=== PATIENT | female | born 2005 | race Caucasian/White ===

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

== ENCOUNTER 2025-06-01 17:28 | Outpatient (REF) | payer SELFPAY ==
--- OUTSIDE RECORDS SUMMARY | 2025-06-01 13:15 | XMS_ITS | Encounter Summary ---
Author Organization [employer] Address [address] [facility] 7 [place] [address] Care Team Providers Care Service Line Bus Cleaner Name Role Phone Timmy Snow MD Primary Care Provide r Reason for Visit * Reason Comments nexplanon removal Encounter Details Date Type Department Care Team (Latest Contact Info) Description 06/01/2025 1:15 PM EDT Procedure [facility] [address] [place] [address] Cady Joseph CNM [address] [place] [address] Nexplanon removal (Primary Dx); Screening examination for venereal disease; Low back pain, non-specific Social History Tobacco Use Types Packs/Day Years Used Date Smoking Tobacco: Never Smokeless Tobacco: Never Alcohol Use Standard Drinks/Week Comments Never 0 (1 standard drink = 0.6 oz pur e alcohol) Depression Answer Date Recorded Patient Health Questionnaire-9 Score 12 06/01/2025 Patient Health Questionnaire-9 Score 12 06/01/2025 Last PHQ-9: Questionnaire Data Not on file 1 Housing Stability Answer Date Recorded What is your housing situation today? Not on abebe e 06/01/[address] you li ve. Do you have problems with any of the following? None of the above 06/01/2025 Food Insecurity Answer Date Recorded Within the [...] Answer Date Recorded Patient Health Questionnaire-2 Score 4 06/01/2025 Comments No Intention Date Recorded No desire to become (finding) 1 Sex and Gender Information Value Date Recorded Sex Assigned at Female 02/21/2023 2:13 PM EDT Legal Sex Female 11:33 AM EST Gender Identity Female 02/21/2023 2:13 PM EDT Sexual Orientation Don't know 02/21/2023 2: 13 PM EDT documented as of this encounter Last Filed Vital Signs Vital Sign Reading Time Taken Comments Blood Pressure 122/70 06/01/2025 1:35 PM EDT Pulse 80 06/01/2025 1:35 PM EDT Temperature 37.1 C (98.7 F) 06/01/2025 1:35 PM EDT Respiratory Rate 16 06/01/2025 1:35 PM EDT Oxygen Saturation - - Inhaled Oxygen Concentration - - Weight 71.6 kg (157 lb 12.8 oz) 06/01/2025 1:35 PM EDT Height - - Body Mass Index - - documented in this encounter Functional Status * Over the past 2 weeks, how often have you been bothered by any of the following problems? Question Answer Date of Assessment Author Patient Health Questionnaire -2 Score 4 06/01/2025 2:43 PM EDT Petr Galeas MA * Little interest or pleasure in doing things Answer Date of Assessment Author More than half the days 06/01/2025 2:43 PM EDT Karie Blanc MA * Feeling down, depressed, or hopeless Answer Date of Assessment Author More than half the days 06/01/2025 2:43 PM EDT Karie Blanc MA * Trouble falling or staying asleep, or sleeping too much Answer Date of Assessment Author More than half the days 06/01/2025 2:43 PM EDT Karie Blanc MA * Feeling tired or having little energy Answer Date of Assessment Author More than half the days 06/01/2025 2:43 PM EDT Karie Blanc MA * Poor appetite or overeating Answer Date of Assessment Author More than half the days 06/01/2025 2:43 PM EDT Karie Blanc MA * Feeling bad about yourself - or that you are a failure or have let yourself or your family down Answer Date of Assessment Author Several days 06/01/2025 2:43 PM EDT Karie Galeas MA * Trouble concentrating on things, such as reading the newspaper or watching television Answer Date of Assessment Author Not at all 06/01/2025 2:43 PM EDT Karie Galeas MA * Moving or speaking so slowly that other people could have noticed? Or the opposite - being so fidgety or restless that you have been moving around a lot more than usual. Answer Date of Assessment Author Several days 06/01/2025 2:43 PM EDT Karie Galeas MA * Thoughts that you would be better off or hurting yourself in some way Answer Date of Assessment Author Not at all 06/01/2025 2:43 PM EDT Karie Galeas MA * Patient Health Questionnaire-9 Score Answer Date of Assessment Author 12 06/01/2025 2:43 PM EDT Karie Galeas MA * How difficult have these problems made it for you to do your work, take care of things at home, or get along with other people? Answer Date of Assessment Author Not difficult at all 06/01/2025 2:43 PM EDT Karie Geiger MA documented as of this encounter Progress Notes * Cady Joseph CNM - 06/01/2025 1:15 PM EDTAssociated Order(s): Insertion/Removal of Contraceptive Capsule Subjective Patient ID: Laine Kuhn is a 19 y.o. female who presents for Nexplanon removal Nexplanon inserted 03/2023. Would like removal today, just doesn't feel like herself. Amenorrheic with implant, but gets monthly cramping. Likes having regular period. Last sexually active 6 months ago. Agrees to urine based STI testing today. Not planning in the next year. Notes some low back pain. Denies urinary or vaginal symptoms. Review of Systems Genitourinary: Negative for dysuria, frequency, hematuria, pelvic pain, vaginal bleeding, vaginal discharge and vaginal pain. Musculoskeletal: Positive for back pain. Objective BP 122/70 (BP Location: Left arm, Patient Position: Sitting, BP Cuff Size: Adult) Pulse 80 Temp98.7 ??F (37.1 ??C) (Oral) Resp 16 Wt 157 lb 12.8 oz (71.6 kg) Physical Exam Constitutional: Appearance: Normal appearance. Abdominal: Tenderness: There is no right CVA tenderness or left CVA tenderness. Skin: Comments: Nexplanon palpable in left arm prior to removal Neurological: Mental Status: She is alert. Psychiatric: Mood and Affect: Mood normal. Behavior: Behavior normal. Assessment/Plan Diagnoses and all orders for this visit: Nexplanon removal - POCT Urinalysis Nexplanon removed intact, easily. See procedure note. Report redness, pain or swelling at removal site. Report irregular bleeding or missed menses. Let me know if no menses by end of June. Aware of condoms and EC. Let me know if interested in starting another method. Keep pressure bandage on x 24h, steristrips and bandaid x 3-5 days. Keep arm dry for 24 hours. Screening examination for venereal disease - Chlamydia/N. Gonorrhoeae, PCR, Urine - Trichomonas RNA (Urine/Vaginal) Urine Gonorrhea/Chlamydia/trichomonas sent. Will offer serum labs when I call with results. Low back pain, non-specific Neg CVAT today. Sounds more like this is cyclical with cramping. Increase fluids. Seek care if symptoms worsen/persist. Insertion/Removal of Contraceptive Capsule Date/Time: 06/01/2025 1:35 PM Performed by: Cady Joseph CNM Authorized by: Cady Joseph CNM Confirmed correct patient, procedure, site, and patient consented: Yes Participating Staff: Cady Joseph CNM Participating Staff: PHILLIP Pena Consent: Consent obtained: Verbal and written Consent given by: Patient Procedural risks and benefits discussed: Yes Patient questions answered: yes Patient agrees, verbalizes understanding, and wants to proceed: yes Instructions and paperwork completed: yes Lawai Protocol: Patient states understanding of procedure being performed: yes Site marked: yes Indication: Indication: presence of non-biodegradable drug delivery implant Pre-procedure: Pre-procedure timeout performed: yes Prepped with: povidone-iodine Local anesthetic: 2ml 2% lidocaine. The site was cleaned and prepped in a sterile fashion: yes Procedure: Procedure: Removal Small stab incision was made in arm: yes Left/right: Left Site was closed with steri-strips and pressure bandage applied: yes Comments: Implant removed intact, easily. documented in this encounter Plan of Treatment Upcoming Encounters Date Type Department Care Team (Late st Contact Info) Description 06/23/2025 2:00 PM EST Office Visit [facility] [address] [place], [place] [id number] Susan Stanton FNP [address] [place] [address] Scheduled Orders Name Type Priority Associated Diagnoses Orde r Schedule Chlamydia/N. Gonorrhoeae, PCR, Urine Lab Routine Screening examination for venereal disease Ordered: 06/01/2025 Trichomonas RNA (Urine/Vaginal) Lab Routine Screening examination for venereal disease Ordered: 06/01/2025 documented as of this encounter Procedures Procedure Name Priority Date/Time Associated Diagnosis Comments POCT URINALYSIS DIPSTICK Routine 06/01/2025 1:44 PM EDT Nexplanon removal [place] REMOVAL NON-BIODEGRADABLE DRUG DELIVERY IMPLANT Routine 06/01/2025 1:35 PM EDT Nexplanon removal documented in this encounter Results * POCT Urinalysis (06/01/2025 1:44 PM EDT) Color, UA Yellow Clarity, UA Clear Glucose, UA Negative Bilirubin, UA Negative Ketones, UA Negative Spec Grav, UA 1.030 Blood, UA Negative Negative, None Detected pH, UA 6.0 Protein, UA Negative Urobilinogen, UA 1.0 Leukocytes, UA Negative Negative, Rare, Trace Nitrite, UA Negative Negative, None Detected Appearance, UA clear Urine (Urine, Random) 06/01/2025 1:44 PM EDT Cady Joseph CNM POINT OF CARE TEST ENTER/ EDIT ORDERABLES Final Result * [place] REMOVAL NON-BIODEGRADABLE DRUG DELIVERY IMPLANT (06/01/2025 1:35 PM EDT) Narrative Cady Joseph CNM - 06/01/2025 1:35 PM EDT Cady Joseph CNM 06/01/2025 3:22 PM Insertion/Removal of Contraceptive Capsule Date/Time: 06/01/2025 1:35 PM Performed by: Cady Joseph CNM Authorized by: Cady Joseph CNM Confirmed correct patient, procedure, site, and patient consented: Yes Participating Staff: Cady Joseph CNM Participating Staff: PHILLIP Pena Consent: Consent obtained: Verbal and written Consent given by: Patient Procedural risks and benefits discussed: Yes Patient questions answered: yes Patient agrees, verbalizes understanding, and wants to proceed: yes Instructions and paperwork completed: yes Lawai Protocol: Patient states understanding of procedure being performed: yes Site marked: yes Indication: Indication: presence of non-biodegradable drug delivery implant Pre-procedure: Pre-procedure timeout performed: yes Prepped with: povidone-iodine Local anesthetic: 2ml 2% lidocaine. The site was cleaned and prepped in a sterile fashion: yes Procedure: Procedure: Removal Small stab incision was made in arm: yes Left/right: Left Site was closed with steri-strips and pressure bandage applied: yes Comments: Implant removed intact, easily. Cady Joseph CNM IN CLINIC/BEDSIDE ORDERAB LES Final Result documented in this encounter Visit Diagnoses Diagnosis Nexplanon removal- Primary Screening examination for venereal disease Low back pain, non-specific documented in this encounter Additional Health Concerns Assessment Noted Time PHQ-9 Depression Total Score: 12 025 2:43 PM EDT documented as of this encounter Care Teams Service Line Bus Cleaner Relationship Specialty Start Date End Date Timmy Snow MD [address] [place] [address] PCP - General Pediatrics 03/14/23 documented as of this encounter
--- OUTSIDE RECORDS SUMMARY | 2025-06-01 18:50 | XMS_ITS | Encounter Summary ---
Author Organization [employer] [employer] [employer] Address [address] [facility] 7t [place] [address] Care Team Providers Care Lan Engineer Name Role Phone Timmy Snow MD Primary Care Provide r Encounter Details Date Type Department Care Team (Latest Contact Info) Description 06/01/2025 Travel Social History Tobacco Use Types Packs/Day Years [...] Health Questionnaire-2 Score 4 06/01/2025 Comments No Sex and Gender Information Value Date Recorded Sex Assigned at Female 02/21/2023 2:13 PM EDT Legal Sex Female 11:33 AM EST Gender Identity Female 02/21/2023 2:13 PM EDT Sexual Orientation Don't know 02/21/2023 2: 13 PM EDT documented as of this encounter Functional Status * Over the [...] half the days 06/01/2025 2:43 PM EDT aKrie Blanc MA * Feeling bad about yourself [...] Geiger MA documented as of this encounter Plan of Treatment Upcoming Encounters Date Type Department Care Team (Late st Contact Info) Description 06/23/2025 2:00 PM EST Office Visit [facility] [address] [place] [address] Susan Stanton FNP [address] [place] [address] documented as of this encounter Visit Diagnoses Not on filedocumented in this encounter Additional Health Concerns Assessment Noted Time PHQ-9 Depression Total Score: 12 025 2:43 PM EDT documented as of this encounter Care Teams Lan Engineer Relationship Specialty Start Date End Date Timmy Snow MD [address] [place] [address] PCP - General Pediatrics 03/14/23 documented as of this encounter
--- OUTSIDE RECORDS SUMMARY | 2025-06-01 18:50 | XMS_ITS | Encounter Summary ---
Author Organization [facility] Address [address] [place] [address] Phone Care Team Providers Care Helicopter Utility Aircrewman Name Role Phone Beverly Medina MD Primary Care Provider [phone] Encounter Details Date Type Department Care Team ([facility] Contact Info) Description 07/30/2013 Documentation [facility] [place] Family Medicine [address] [place] [address] Family Medicine, Physician [address] [place] [address] Social History Tobacco Use Types [...] on filedocumented in this encounter Care Teams Helicopter Utility Aircrewman Relationship Specialty Start Date End Date Beverly Medina MD [address] [place] [address] PCP - General Pediatrics 01/13/20 02/24/23 documented as of this encounter
--- OUTSIDE RECORDS SUMMARY | 2025-06-01 18:50 | XMS_ITS | Encounter Summary ---
Author Organization [facility] Address [address] [place] [address] Phone Care Team Providers Care Waxer Name Role Phone Beverly Medina MD Primary Care Provider [phone] Encounter Details Date Type Department Care Team ([facility] Contact Info) Description 06/26/[address] [facility] [place] Family Medicine [address] [place] [address] Family Medicine, Physician [address] [place] [address] Social History Tobacco Use Types [...] on filedocumented in this encounter Care Teams Waxer Relationship Specialty Start Date End Date Beverly Medina MD [address] [place] [address] PCP - General Pediatrics 01/13/20 02/24/23 documented as of this encounter
--- OUTSIDE RECORDS SUMMARY | 2025-06-01 18:50 | XMS_ITS | Encounter Summary ---
Author Organization [employer] Address [address] [facility] [address] 7[address] [place] [address] Care Team Providers Care Caseworker Intake Name Role Phone Timmy Snow MD Primary Care Provide r Encounter Details Date Type Department Care Team ([facility] Contact Info) Description 05/31/2025 Telephone [facility] [address] [place], [place] [phone] Hannah Fuentes MA Social History Tobacco Use Types Packs/Day Years [...] encounter Miscellaneous Notes * Telephone Encounter - Hannah Fuentes MA - 05/31/2025 9:41 AM EDT Chart Prep Labs: done Images: not applicable Referrals: not applicable Vaccines due: Covid, Flu, and MCV4 Screenings: HIV screening Overdue care gaps: SBIRT, SDOH, PHQ-9, Fluoride , and Disability screen documented in this encounter Plan of Treatment Upcoming Encounters Date Type Department Care Team (Late st Contact Info) Description 06/23/2025 2:00 PM EST Office Visit [facility] [address] [place] [address] Susan Stanton FNP [address] [place] [address] documented as of this encounter Visit Diagnoses Not on filedocumented in this encounter Additional Health Concerns Assessment Noted Time PHQ-9 Depression Total Score: 3 03/14/20 9:39 AM EDT documented as of this encounter Care Teams Caseworker Intake Relationship Specialty Start Date End Date Timmy Snow MD [address] [place] [address] PCP - General Pediatrics 03/14/23 documented as of this encounter
--- OUTSIDE RECORDS SUMMARY | 2025-06-01 18:50 | XMS_ITS | Encounter Summary ---
Author Organization [facility] Address [address] [place] [address] Phone Care Team Providers Care Powered Bridge Specialist Name Role Phone Beverly Medina MD Primary Care Provider [phone] Encounter Details Date Type Department Care Team ([facility] Contact Info) Description 11/12/2011 Documentation [facility] [place] [address] [place] [address] Family Medicine, Physician [address] [place] [address] Social History Tobacco Use Types [...] on filedocumented in this encounter Care Teams Powered Bridge Specialist Relationship Specialty Start Date End Date Beverly Medina MD [address] [place] [address] PCP - General Pediatrics 01/13/20 02/24/23 documented as of this encounter
--- OUTSIDE RECORDS SUMMARY | 2025-06-01 18:50 | XMS_ITS | Encounter Summary ---
Author Organization [facility] Address [address] [place] [address] Phone Care Team Providers Care Manager Icu Name Role Phone Beverly Medina MD Primary Care Provider [phone] Encounter Details Date Type Department Care Team ([facility] Contact Info) Description 08/01/2016 Documentation [facility] [place] [address] [place] [address] Family Medicine, Physician [address] [place] [address] Social History Tobacco Use Types [...] filedocumented in this encounter Care Teams Manager Icu Relationship Specialty Start Date End Date Beverly Medina MD [address] [place] [address] PCP - General Pediatrics 01/13/20 02/24/23 documented as of this encounter
--- OUTSIDE RECORDS SUMMARY | 2025-06-01 18:50 | XMS_ITS | Encounter Summary ---
Author Organization [facility] Address [address] [place] [address] Phone Care Team Providers Care Construction Site Crossing Guard Name Role Phone Beverly Medina MD Primary Care Provider [phone] Encounter Details Date Type Department Care Team ([facility] Contact Info) Description 12/28/2015 Documentation [facility] [place] [address] [place] [address] Family Medicine, Physician [address] [place] [address] Social History Tobacco Use Types [...] on filedocumented in this encounter Care Teams Construction Site Crossing Guard Relationship Specialty Start Date End Date Beverly Medina MD [address] [place] [address] PCP - General Pediatrics 01/13/20 02/24/23 documented as of this encounter
--- OUTSIDE RECORDS SUMMARY | 2025-06-01 18:50 | XMS_ITS | Encounter Summary ---
Author Organization [facility] Address [address] [place] [address] Phone Care Team Providers Care Breast Splitter Name Role Phone Beverly Medina MD Primary Care Provider [phone] Encounter Details Date Type Department Care Team ([facility] Contact Info) Description 10/21/2014 Documentation [facility] [place] [facility] Family Medicine [address] [place] [address] Family Medicine, Physician [address] [place] [address] Social History Tobacco Use Types [...] on filedocumented in this encounter Care Teams Breast Splitter Relationship Specialty Start Date End Date Beverly Medina MD [address] [place] [address] PCP - General Pediatrics 01/13/20 02/24/23 documented as of this encounter
--- OUTSIDE RECORDS SUMMARY | 2025-06-01 18:50 | XMS_ITS | Encounter Summary ---
Author Organization [facility] Address [address] [place] [address] Phone Care Team Providers Care Orthodontic Assistant Name Role Phone Beverly Medina MD Primary Care Provider [phone] Encounter Details Date Type Department Care Team ([facility] Contact Info) Description 10/21/2014 Documentation [facility] Family Medicine [address] [place] [address] Family Medicine, Physician [address] [place] [address] Social History Tobacco Use Types [...] on filedocumented in this encounter Care Teams Orthodontic Assistant Relationship Specialty Start Date End Date Beverly Medina MD [address] [place] [address] PCP - General Pediatrics 01/13/20 02/24/23 documented as of this encounter
--- OUTSIDE RECORDS SUMMARY | 2025-06-01 18:50 | XMS_ITS | Encounter Summary ---
Author Organization [facility] Address [address] [place] [address] Phone Care Team Providers Care Chaplaincy Name Role Phone Beverly Medina MD Primary Care Provider [phone] Encounter Details Date Type Department Care Team ([facility] Contact Info) Description 04/04/2017 Conversion Encounter [facility] [address] [place] [address] Social History Tobacco Use Types Packs/Day Years [...] on filedocumented in this encounter Care Teams Chaplaincy Relationship Specialty Start Date End Date Beverly Medina MD [address] [place] [address] PCP - General Pediatrics 01/13/20 02/24/23 documented as of this encounter
--- OUTSIDE RECORDS SUMMARY | 2025-06-01 18:50 | XMS_ITS | Encounter Summary ---
Author Organization [facility] Address [address] [place] [address] Phone Care Team Providers Care Electrophonic Engineer Name Role Phone Beverly Medina MD Primary Care Provider [phone] Encounter Details Date Type Department Care Team ([facility] Contact Info) Description 07/31/2016 Documentation [facility] [place] Family Medicine [address] [place] [address] Family Medicine, Physician [address] [place] [address] Social History Tobacco Use Types [...] on filedocumented in this encounter Care Teams Electrophonic Engineer Relationship Specialty Start Date End Date Beverly Medina MD [address] [place] [address] PCP - General Pediatrics 01/13/20 02/24/23 documented as of this encounter
--- OUTSIDE RECORDS SUMMARY | 2025-06-01 18:50 | XMS_ITS | Encounter Summary ---
Author Organization [employer] Address [address] [facility] [address]t [place] [address] Care Team Providers Care Environmental Safety Specialist Name Role Phone Timmy Snow MD Primary Care Provide r Encounter Details Date Type Department Care Team (Latest Contact Info) Description 05/31/2025 Travel Social History Tobacco Use Types Packs/Day [...] Description 06/23/2025 2:00 PM EST Office Visit [facility] MED[facility] [address] [place] [address] Susan Stanton FNP [address] [place] [address] documented as of this encounter Visit Diagnoses Not on filedocumented in this encounter Additional Health Concerns Assessment Noted Time PHQ-9 Depression Total Score: 3 03/14/20 23 9:39 AM EDT documented as of this encounter Care Teams Environmental Safety Specialist Relationship Specialty Start Date End Date Timmy Snow MD [address] [place] [address] PCP - General Pediatrics 03/14/23 documented as of this encounter
--- OUTSIDE RECORDS SUMMARY | 2025-06-01 18:50 | XMS_ITS | Clinical Summary ---
Author Organization [employer] Address [address] [facility] 7 [place] [address] Care Team Providers Care Finished Goods Stock Clerk Name Role Phone Timmy Snow MD Primary [...] issues. Saw a clinician, school based, through [facility], ~2017 for about a year. Last Assessment & Plan: Depression more significant now, especially after her uncle . Mom planning to call [facility] to get new therapist, but I think help with short term coping skills and support could be helpful in the meantime, so WHO done with Sarai Frankel [facility]. Psychosocial stressors 08/07/2019 Overview (03/13/2023): 08/05/19: DCF [...] Encounters Date Type Department Care Team Description 06/01/2025 1:15 PM EDT Procedure Visit [facility] [address] [place] [address] Cady Joseph CNM Nexplanon removal (Primary Dx); Screening examination for venereal disease; Low back pain, non-specific 06/01/2025 Travel 05/31/2025 Travel 05/31/2025 Telephone [facility] [address] [place] [address] Hannah Fuentes [place] 05/18/2025 Telephone [facility] [address] [place] [phone] Susan Stanton FNP Appointment Request from Last 3 Months Immunizations Immunization Administration Dates Next Due DTaP / Hep [...] 16 06/01/2025 1:35 PM EDT Oxygen Saturation 100% 06/24/2023 2:02 PM EST Inhaled Oxygen Concentration - - Weight 71.6 kg (157 lb 12.8 oz) 06/01/2025 1:35 PM EDT Height 161.3 cm (5' 3.5 ) 06/24/2023 2:02 PM EST Body Mass Index - - Plan of Treatment Upcoming Encounters Date Type Department Care Team (Late st Contact Info) Description 06/23/2025 2:00 PM EST Office Visit [facility] [address] [place] [address] Susan Stanton, FEATHER SHAPER [address] [place] [address] Health Maintenance Due Date Last Done Comments HIV Screening 2005 Fluoride Varnish 08/12/2006 Meningococcal B Vaccine (1 of 2 - Standard) 2021 Hepatitis C Screening 12/12/2023 SDOH Screening 03/06/2024 03/06/2023 Chlamydia and Gonorrhea Screening 03/14/2024 03/14/2023, 07/06/2021 COVID-19 Vaccine ( season) 2025 04/28/2021, 04/07/2021 Influenza Vaccine (#1) 2025 , 06/02/2021, 07/13/2020, Additional history exists Depression Monitoring 11/30/2025 06/01/2025, 025 Alcohol/Substance Use Screening 06/01/2026 06/01/2025 Disability Screening 06/01/2026 06/01/2025 Family Planning (PISQ) 06/01/2026 06/01/2025 Tobacco Screening 06/01/2026 06/01/2025 DTaP/Tdap/Td Vaccines (7 - Td or Tdap) [...] Years) and At-Risk Patients (6 to 49) Years Aged Out 04/07/2007, 07/22/2006, 04/29/2006, Additional history [...] Routine 06/01/2025 1:44 PM EDT Nexplanon removal [place] REMOVAL NON-BIODEGRADABLE DRUG DELIVERY IMPLANT Routine 06/01/2025 1:35 PM EDT Nexplanon removal CHLAMYDIA/N. GONORRHOEAE RNA, TMA, UROGENITAL Routine 03/14/2023 9:50 AM EDT Well adolescent visit with abnormal findings from Last 3 Months or Most Recently Relevant to Health Maintenance Results * POCT Urinalysis (06/01/2025 1:44 PM [...] TEST ENTER/ EDIT ORDERABLES Final Result * FL REMOVAL NON-BIODEGRADABLE DRUG DELIVERY IMPLANT (06/01/2025 1:35 [...] proceed: yes Instructions and paperwork completed: yes [place] Protocol: Patient states understanding of procedure being [...] CNM IN CLINIC/BEDSIDE ORDERAB LES Final Result * Chlamydia/N. Gonorrhoeae RNA, TMA, Urogenitial (03/14/2023 9:50 AM EDT) CT PCR NOT DETECTED Not Detect. [facility] Comment:A not detected test result does [...] psychologicalconsequences. NG PCR NOT DETECTED Not Detect. [facility] Comment:A not detected test result does [...] AM EDT 03/14/2023 11:54 AM EDT Narrative [facility] - 03/14/2023 3:16 PM EDT Urine Timmy Snow MD LAB MICROBIOLOGY - [facility] ORDERABLES Final Result [facility] [address] [place] [address] [phone] from Last 3 Months or Most Recently Relevant to Health Maintenance Insurance C3 Care Teams Finished Goods Stock Clerk Relationship Specialty Start Date End Date Timmy Snow MD [address] [place] [phone] PCP - General Pediatrics 03/14/23
--- OUTSIDE RECORDS SUMMARY | 2025-06-01 18:50 | XMS_ITS | Clinical Summary ---
Author Organization [facility] Address [address] [place] [address] Care Team Providers Care Relationship Counselor Name Role Phone Unknown Primary Care Provider [phone] Allergies No known active allergies Social History [...] 106 04/08/2017 6:32 PM EDT Temperature 37.3 C (99.1 F) 04/08/2017 6:32 PM EDT Respiratory Rate 18 04/08/2017 6:32 PM EDT Oxygen Saturation 96% 04/08/2017 6:32 PM EDT Inhaled Oxygen Concentration - - Weight 45.4 kg (100 lb) 04/08/2017 6:32 PM EDT Height - - Body Mass Index - - Plan of Treatment Health Maintenance Due Date Last Done Comments Hepatitis C Virus Screening 2005 HIV Screening 2018 HPV Vaccines (1 - 3-dose series) 2020 DTaP/Tdap/Td Vaccines (1 - Tdap) 2024 Hepatitis B Vaccines (1 of 3 - 19+ 3-dose series) 2024 Influenza Vaccine 03/19/2025 COVID-19 Vaccine (2023-2 5 season) 2025 Pneumococcal Vaccine: Pediat mando (0-5 Years) and At-Risk Patients (6 to 49 Years) Aged Out No longer eligible b ased on patient's age to complete this topic Insurance MEDICAID OUT OF [place] [facility] [place] Care Teams Relationship Counselor Relationship Specialty Start Date End Date Unknown Unknow Provider Address PCP - General 04/08/17
--- OUTSIDE RECORDS SUMMARY | 2025-06-01 18:50 | XMS_ITS | Encounter Summary ---
Author Organization [facility] Address [address] [place] [address] Phone Care Team Providers Care Window Draper Name Role Phone Beverly Medina MD Primary Care Provider [phone] Encounter Details Date Type Department Care Team ([facility] Contact Info) Description 08/01/2016 Documentation [facility] [place] [facility] [address] [place] [address] Family Medicine, Physician [address] [place] [address] Social History Tobacco Use Types [...] on filedocumented in this encounter Care Teams Window Draper Relationship Specialty Start Date End Date Beverly Medina MD [address] [place] [address] PCP - General Pediatrics 01/13/20 02/24/23 documented as of this encounter
--- OUTSIDE RECORDS SUMMARY | 2025-06-01 18:50 | XMS_ITS | Encounter Summary ---
Author Organization [employer] Address [address] [facility] 7 [place] [address] Care Team Providers Care Air Brake Man Name Role Phone Timmy Snow MD Primary Care Provide r Reason for Visit * Reason Onset Date Comments New Derm appt 09/09/2023 Encounter Details Date Type Department Care Team ([facility] Contact Info) Description 09/09/2023 Telephone [facility] [address] [place] [address] Timmy Snow MD [address] [place] [address] New Derm appt Social History Tobacco Use [...] encounter Miscellaneous Notes * Telephone Encounter - Sonidomichael Duffy Asa - 09/09/2023 3:04 PM EST Tc from pt requesting status on New Derm appt . Pt states she was referred by provider. Please contact pt @ [phone] documented in this encounter Plan of Treatment Upcoming Encounters Date Type Department Care Team (Late st Contact Info) Description 06/23/2025 2:00 PM EST Office Visit [facility] [address] [place] [address] Susan Stanton FNP [address] [place] [address] documented as of this encounter Visit Diagnoses Not on filedocumented in this encounter Additional Health Concerns Assessment Noted Time PHQ-9 Depression Total Score: 3 03/14/20 9:39 AM EDT documented as of this encounter Care Teams Air Brake Man Relationship Specialty Start Date End Date Timmy Snow MD [address] [place] [address] PCP - General Pediatrics 03/14/23 documented as of this encounter
--- OUTSIDE RECORDS SUMMARY | 2025-06-01 18:51 | XMS_ITS | Encounter Summary ---
Author Organization [facility] Address [address] [place] [phone] Phone Care Team Providers Care Sports Broadcaster Name Role Phone Beverly Medina MD Primary Care Provider [phone] Encounter Details Date Type Department Care Team ([facility] Contact Info) Description 07/30/2013 Documentation [facility] [address] [place] [address] Family Medicine, Physician [address] [place] [address] Social History Tobacco Use Types [...] on filedocumented in this encounter Care Teams Sports Broadcaster Relationship Specialty Start Date End Date Beverly Medina MD [address] [place] [address] PCP - General Pediatrics 01/13/20 02/24/23 documented as of this encounter
--- OUTSIDE RECORDS SUMMARY | 2025-06-01 18:51 | XMS_ITS | Encounter Summary ---
Author Organization [facility] Address [address] [place] [address] Phone Care Team Providers Care Golf Course Equipment Operator Name Role Phone Beverly Medina MD Primary Care Provider [phone] Encounter Details Date Type Department Care Team ([facility] Contact Info) Description 10/21/2014 Documentation [facility] [place] [address] [place] [address] Family Medicine, Physician [address] [place] [address] Social History Tobacco Use Types [...] on filedocumented in this encounter Care Teams Golf Course Equipment Operator Relationship Specialty Start Date End Date Beverly Medina MD [address] [place] [address] PCP - General Pediatrics 01/13/20 02/24/23 documented as of this encounter
--- OUTSIDE RECORDS SUMMARY | 2025-06-01 18:51 | XMS_ITS | Encounter Summary ---
Author Organization [facility] Address [address] [place] [address] Phone Care Team Providers Care Personal Insurance Advisor Name Role Phone Beverly Medina MD Primary Care Provider [phone] Encounter Details Date Type Department Care Team ([facility] Contact Info) Description 06/26/2012 Documentation [facility] Family Medicine [address] [place] [address] Family Medicine, Physician [address] [place] [address] Social History Tobacco Use Types [...] on filedocumented in this encounter Care Teams Personal Insurance Advisor Relationship Specialty Start Date End Date Beverly Medina MD [address] [place] [address] PCP - General Pediatrics 01/13/20 02/24/23 documented as of this encounter
--- OUTSIDE RECORDS SUMMARY | 2025-06-01 18:51 | XMS_ITS | Clinical Summary ---
Author Organization [facility] Address [address] [place] [address] Phone Care Team Providers Care Costume Designer Name Role Phone Unavailable Primary Care Provider [...] issues. Saw a clinician, school based, through [facility], ~2017 for about a year. Assessment & Plan (06/02/2021 2:43 PM EDT): Depression more significant now, especially after her uncle . Mom planning to call [facility] to get new therapist, but I [...] *Heart Disease, No family history of *Sudden /[place] under 55, Family history of Diabetes mellitus, [...] 84 07/06/2021 2:10 PM EST Temperature 36.8 C (98.3 F) 07/06/2021 2:10 PM EST Respiratory Rate - - Oxygen Saturation - [...] 2 - Standard) 2021 Influenza Vaccines (#1) 2025 06/02/20, 07/13/2020, 07/31/2016, Additional history exists COVID-19 Vaccine ( season) 2025 04/28/2021, 04/07/2021 DTaP,Tdap,and Td Vaccines (7 - [...] Completed 04/13/2019, 04/08/2018 Procedures * Due to [place] [employer] law, this organization might not be sharing sensitive test results. Procedure Name Priority Date/Time Associated Diagnosis Comments CHLAMYDIA AND GONORRHEA, AMPLIFIED Routine 07/06/2021 2:58 PM EST Unprotected sex from Last 3 Months or Most Recently Relevant to Health Maintenance Results * Due to [place] [employer] law, this organization might not be sharing sensitive test results. * Chlamydia and Gonorrhoea, Amplified (07/06/2021 2:58 PM EST) Chlamydia Trachomatis, DNA Probe NEGATIVE (NEG) [facility] Comment: No Chlamydia Trachomatis RNA detected in this patient's sample (REFERENCE RANGE/NORMAL VALUE: NOT DETECTED) Note: This test uses emergency communications operator- mediated amplification method to detect rRNA from C. Trachomatis URINE GC AMP PROBE NEGATIVE (NEG) [facility] Comment: No Neisseria Gonorrhoeae RNA detected in this patient's sample (REFERENCE RANGE/NORMAL VALUE: NOT DETECTED) NOTE: This test uses emergency communications operator-mediated amplification method to detect rRNA from N.Gonorrhoeae. [...] without risk of sexual abuse. Consult the [facility] if needed. Contact phone number . Therapeutic failure or success cannot be determined with the Aptima Combo2 assay since nucleic acid may persist following appropriate antimicrobial therapy. The Centers for Disease Control and Prevention (CDC) recommends confirmatory retesting using culture or a different nucleic acid amplification test when positive results occur, if indicated. Testing performed or reported by [facility], a Service of [facility], [facility] [place] [address] Chevy Loja MD, Distribution Systems Superintendent [facility]# [id number] Urine 07/06/2021 2:58 PM EST 07/07/2021 1:10 AM EST us Beverly Medina MD LAB MICROBIOLOGY - GENERAL OR DERABLES Final Result [facility] from Last 3 Months or Most Recently Relevant to Health Maintenance
[2025-06-02 02:10] LABS: CT PCR Urine NOT DETECTED (Not Detect.); NG PCR Urine NOT DETECTED (Not Detect.)
== END 2025-06-01 17:29 | disposition home or self-care (01) ==
LOC: HO.HHCLNP 17:28
PROVIDERS: Visit Provider Advanced Practice Midwife
DX: Z20.2 Contact with and (suspected) exposure to infections with a predominantly sexual mode of transmission (principal)
CPT/HCPCS: 87491; 87591; 87661